=== PATIENT | male | born 1960 | race Caucasian/White ===

== ENCOUNTER → 2019-04-14 | Outpatient (CLI) | payer BC | LOC: COL.RAD 07:42 | DX: N40.0 Benign prostatic hyperplasia without lower urinary tract symptoms (principal); J84.10 Pulmonary fibrosis, unspecified; R91.8 Other nonspecific abnormal finding of lung field; K76.0 Fatty (change of) liver, not elsewhere classified; Z85.46 Personal history of malignant neoplasm of prostate | CPT/HCPCS: Q9967 ==

== ENCOUNTER → 2019-04-17 | Outpatient (CLI) | payer BC | LOC: COL.RAD 08:53 | DX: C61 Malignant neoplasm of prostate (principal) | CPT/HCPCS: A9503 ==

== ENCOUNTER → 2020-05-28 | Outpatient (CLI) | payer BC | LOC: COL.RAD 10:47 | DX: C61 Malignant neoplasm of prostate (principal); R91.8 Other nonspecific abnormal finding of lung field; J84.10 Pulmonary fibrosis, unspecified; J43.9 Emphysema, unspecified; M51.36 Other intervertebral disc degeneration, lumbar region; M47.817 Spondylosis without myelopathy or radiculopathy, lumbosacral region | CPT/HCPCS: Q9967 ==